=== PATIENT | female | born 1995 | race African-American/Black ===

== ENCOUNTER 2021-01-04 08:15 | Emergency (ER) | payer OTHER ==
[~2021-01-04] VITALS: Ht 157.5 cm; Wt 56.8 kg
[2021-01-04 08:16] VITALS: BP 112/79
== END 2021-01-04 09:50 | disposition home or self-care (01) ==
LOC: EMS 08:20
DX: L02.415 Cutaneous abscess of right lower limb (principal)
CPT/HCPCS: 99283; Z7502

== ENCOUNTER 2021-01-15 11:03 | Emergency (ER) | payer OTHER ==
[~2021-01-15] VITALS: Ht 157.5 cm; Wt 54.5 kg
[2021-01-15 12:00] VITALS: BP 130/75
[2021-01-15] MEDS ORDERED: PredniSONE 20 MG TABLET PO ONE (12:00)
== END 2021-01-15 12:10 | disposition home or self-care (01) ==
LOC: EMS 11:07
DX: T78.40XA Allergy, unspecified, initial encounter (principal); X58.XXXA Exposure to other specified factors, initial encounter
CPT/HCPCS: 99283; J7512

== ENCOUNTER 2021-02-20 15:11 | Emergency (ER) | payer OTHER ==
[~2021-02-20] VITALS: Ht 157.5 cm; Wt 54.5 kg
[2021-02-20 16:14] VITALS: BP 115/73
== END 2021-02-20 16:14 | disposition home or self-care (01) ==
LOC: EMS 15:11
DX: L30.8 Other specified dermatitis (principal); Z88.0 Allergy status to penicillin
CPT/HCPCS: 99283

== ENCOUNTER 2021-05-28 14:24 | Emergency (ER) | payer OTHER ==
[~2021-05-28] VITALS: Ht 157.5 cm; Wt 51.4 kg
[2021-05-28 14:26] VITALS: BP 102/68
== END 2021-05-28 14:58 | disposition home or self-care (01) ==
LOC: EMS 14:24
DX: L73.9 Follicular disorder, unspecified (principal); Z88.0 Allergy status to penicillin
CPT/HCPCS: 99283

== ENCOUNTER 2021-06-22 12:03 | Emergency (ER) | payer OTHER ==
[~2021-06-22] VITALS: Ht 157.5 cm; Wt 51.0 kg
[2021-06-22] MEDS ORDERED: ACETAMINOPHEN 500 MG TABLET PO ONE (13:00)
[2021-06-22] MEDS ORDERED: POVIDONE-IODINE 10% 15 ML SOLUTION UD TP ONE (13:00)
[2021-06-22] MEDS ORDERED: LIDOCAINE 1% 10 ML VIAL SQ ONE (13:00)
[2021-06-22 13:26] VITALS: BP 115/89
== END 2021-06-22 13:34 | disposition home or self-care (01) ==
LOC: EMS 12:07
DX: L02.416 Cutaneous abscess of left lower limb (principal); Z88.0 Allergy status to penicillin
CPT/HCPCS: 10060; 99283; J3490

== ENCOUNTER 2021-06-24 14:28 | Emergency (ER) | payer OTHER ==
[~2021-06-24] VITALS: Ht 157.5 cm; Wt 52.3 kg
[2021-06-24 18:40] VITALS: BP 112/65
== END 2021-06-24 18:45 | disposition home or self-care (01) ==
LOC: EMS 14:37
DX: L02.416 Cutaneous abscess of left lower limb (principal)
CPT/HCPCS: 99282; Z7502

== ENCOUNTER 2021-06-29 14:37 | Emergency (ER) | payer OTHER ==
[~2021-06-29] VITALS: Ht 157.5 cm; Wt 51.4 kg
[2021-06-29 16:03] VITALS: BP 129/75
== END 2021-06-29 16:20 | disposition home or self-care (01) ==
LOC: EMS 14:37
DX: L02.415 Cutaneous abscess of right lower limb (principal); Z88.0 Allergy status to penicillin
CPT/HCPCS: 99281; Z7502

== ENCOUNTER 2021-07-28 15:53 | Emergency (ER) | payer OTHER ==
[~2021-07-28] VITALS: Ht 157.5 cm; Wt 52.3 kg
[2021-07-28 16:09] VITALS: BP 102/63
== END 2021-07-28 18:50 | disposition home or self-care (01) ==
LOC: EMS 16:55
DX: L03.116 Cellulitis of left lower limb (principal)
CPT/HCPCS: 99283; Z7502

== ENCOUNTER 2021-08-27 11:48 | Emergency (ER) | payer OTHER ==
[~2021-08-27] VITALS: Ht 157.5 cm; Wt 50.5 kg
[2021-08-27 12:50] VITALS: BP 119/77
[2021-08-27] MEDS ORDERED: LIDOCAINE 1% 10 ML VIAL SQ ONE (13:00)
== END 2021-08-27 13:05 | disposition home or self-care (01) ==
LOC: EMS 11:48
DX: S71.101A Unspecified open wound, right thigh, initial encounter (principal); L70.0 Acne vulgaris; Z88.0 Allergy status to penicillin; X58.XXXA Exposure to other specified factors, initial encounter; Y93.89 Activity, other specified; Y92.89 Other specified places as the place of occurrence of the external cause; Y99.8 Other external cause status
CPT/HCPCS: 11042; 99285; J3490

== ENCOUNTER 2022-10-30 18:49 | Emergency (ER) | payer OTHER ==
[~2022-10-30] VITALS: Ht 162.6 cm; Wt 56.8 kg
[2022-10-30 19:40] LABS: COVID AG,FIA SOURCE NASOPHARYNGEAL
[2022-10-30 20:07] LABS: INFLUENZA TYPE A NEGATIVE FOR TYPE A (NEGATIVE); INFLUENZA TYPE B NEGATIVE FOR TYPE B (NEGATIVE)
[2022-10-30] MEDS ORDERED: SODIUM CHLORIDE 0.9% 1,000 ML IV ONE (21:30)
[2022-10-30] MEDS ORDERED: ONDANSETRON HCL 4 MG/2 ML VIAL IVP ONE (21:30)
[2022-10-30 22:01] LABS: BASOPHILS % (AUTO) 0.4 % (0.0-2.0); EOSINOPHILS % (AUTO) 2.4 % (1.0-6.0); HEMATOCRIT 27.6 % (36-46); HEMOGLOBIN 9.4 g/dL (12.0-16.0); LYMPHOCYTES # (AUTO) 1.2 K/uL (1.0-4.8); LYMPHOCYTES % (AUTO) 7.4 % (22.0-44.0); MEAN CORPUSCULAR HEMOGLOBIN 26.3 pg (26.0-34.0); MEAN CORPUSCULAR VOLUME 78 fL (80-100); MONOCYTES # (AUTO) 1.6 K/uL (0.1-1.0); MONOCYTES % (AUTO) 9.7 % (2.0-9.0); NEUTROPHILS # (AUTO) 13.5 K/uL (1.8-7.7); NEUTROPHILS % (AUTO) 80.1 % (40.0-70.0); PLATELET COUNT (AUTO) 309 K/uL (150-450); RED BLOOD CELL COUNT(AUTO) 3.56 MIL/uL (4.00-5.20); RED CELL DISTRIBUTION WIDTH 14.5 % (11.5-14.5)
[2022-10-30 22:04] LABS: ANION GAP 10 mmol/L (8-16); CALCIUM, TOTAL 8.4 mg/dL (8.8-10.5); CARBON DIOXIDE 22 mmol/L (22-29); CHLORIDE 108 mmol/L (98-107); CREATININE 0.79 mg/dL (0.60-1.30); GLOMERULAR FILTR. RATE CALC > 60 mL/min (>60); GLUCOSE,RANDOM 91 mg/dL (70-110); POTASSIUM 3.5 mmol/L (3.5-5.1); SODIUM SERUM 140 mmol/L (136-145); UREA NITROGEN, BLOOD 5 mg/dL (7-18)
[2022-10-30 22:15] LABS: HCG,QUANTITATIVE 13 mIU/mL (0-6)
[2022-10-30] MEDS ORDERED: ACETAMINOPHEN 500 MG TABLET PO ONE (23:00)
[2022-10-30 23:10] LABS: APPEARANCE,URINE HAZY (CLEAR); BILIRUBIN,URINE NEGATIVE (NEGATIVE); GLUCOSE, URINE (UA) NEGATIVE (NEGATIVE); KETONES,URINE NEGATIVE (NEGATIVE); LEUKOCYTE ESTERASE ,URINE LARGE (NEGATIVE); NITRATE,URINE NEGATIVE (NEGATIVE); OCCULT BLOOD,URINE SMALL (NEGATIVE); PH,URINE 6.5 (5.0-8.0); PROTEIN,URINE 30-70 mg/dL (NEGATIVE); SPECIFIC GRAVITIY, URINE 1.007 (1.003-1.030); UROBILINOGEN,URINE <=1.0 mg/dL (<=1.0)
[2022-10-30 23:22] LABS: BACTERIA,URINE Rare /HPF (None Seen); SQUAMOUS EPITHELIAL CELL,UR Few /LPF (None Seen); WBC,URINE 26-50 /HPF (0-5)
[2022-10-31 00:38] VITALS: BP 98/62
[2022-10-31 01:01] LABS: ALANINE AMINOTRANSFERASE 13 U/L (12-78); ALBUMIN 3.8 g/dL (3.4-5.0); ALKALINE PHOSPHATASE 40 U/L (46-116); ASPARTATE AMINOTRANSFERASE 18 U/L (15-37); BILIRUBIN,TOTAL 2.9 mg/dL (0.1-1.0); TOTAL PROTEIN, SERUM 7.4 g/dL (6.4-8.2)
[2022-10-31] MEDS ORDERED: NITROFURANTOIN MONOHYD/M-CRYST 100 MG CAPSULE [MACROBID] PO ONE (01:30)
[2022-10-31 01:39] LABS: AMPHET/METH SCREEN,URINE NEGATIVE (NEGATIVE); BARBITURATE SCREEN, URINE NEGATIVE (NEGATIVE); BENZODIAZEPINES SCREEN,URINE NEGATIVE (NEGATIVE); CANNABINOID SCREEN,URINE NEGATIVE (NEGATIVE); COCAINE SCREEN,URINE NEGATIVE (NEGATIVE); METHADONE SCREEN, URINE NEGATIVE (NEGATIVE); OPIATE SCREEN,URINE NEGATIVE (NEGATIVE); PHENCYCLIDINE SCREEN,URINE NEGATIVE (NEGATIVE)
[2022-10-31] MEDS ORDERED: NITR-75 PO (02:10)
== END 2022-10-31 02:39 | disposition home or self-care (01) ==
LOC: EMS 18:50
DX: O23.41 Unspecified infection of urinary tract in pregnancy, first trimester (principal); R50.9 Fever, unspecified; Z88.0 Allergy status to penicillin; Z3A.13 13 weeks gestation of pregnancy; Z20.822 Contact with and (suspected) exposure to COVID-19
CPT/HCPCS: 99285; 96374; 76801; 71045; 96361; 87426; 80053; 84702; 85025; 86308; 87430; 87804; 36415; 87086; 87186; 76817; 81001; 80307 ×2; U0003; J2405; J7030; C9803; 80048